=== PATIENT | female | born 1980 | race Asian ===

== ENCOUNTER 2019-01-25 21:55 | Emergency (ER) | payer MEDICAID ==
[~2019-01-25] VITALS: Ht 154.9 cm; Wt 55.0 kg
[2019-01-25] MEDS ORDERED: SODIUM CHLORIDE 0.9% 1,000 ML IV ONE (23:23)
[2019-01-26 00:35] LABS: BASOPHILS % 0.4 % (0.0-2.0); HEMATOCRIT. 38.7 % (36.0-48.0); HEMOGLOBIN. 13.4 g/dL (12.0-16.0); LYMPHOCYTES % 28.5 % (20.0-50.0); MEAN CORPUSCULAR HEMOGLOBIN 31.1 pg (28.0-32.0); MEAN CORPUSCULAR VOLUME 89.7 fL (81.0-99.0); MEAN PLATELET VOLUME 9.4 fl (7.4-10.4); MONOCYTES % 5.6 % (2.0-8.0); NEUTROPHILS % 64.5 % (40.0-76.0); PLATELET 281 x1000/uL (130-400); RED BLOOD CELL COUNT 4.31 mill/uL (4.2-5.4); RED CELL DISTRIBUTION WIDTH 12.5 % (11.6-14.6)
[2019-01-26 00:44] LABS: PROTHROMBIN TIME 10.2 sec (9.6-11.0)
[2019-01-26 00:57] LABS: CHLORIDE 105 mEq/L (98-107)
[2019-01-26 01:16] LABS: CLARITY URINE CLEAR (CLEAR); COLOR URINE YELLOW (YELLOW); KETONES URINE NEGATIVE (NEGATIVE); LEUKOCYTE ESTERASE URINE NEGATIVE (NEGATIVE); NITRITE URINE NEGATIVE (NEGATIVE); OCCULT BLOOD URINE TRACE (NEGATIVE); PH URINE 8.5 (4.5-8.0); PROTEIN URINE NEGATIVE (NEGATIVE); SPECIFIC GRAVITY URINE 1.019 (1.005-1.030); UROBILINOGEN URINE 0.2 E.U./dL (0.2-1.0)
[2019-01-26 01:24] LABS: B-HCG QUANTITATIVE 1235 mIU/mL (<3)
[2019-01-26] MEDS ORDERED: DEXT 5%/LR + PITOCIN 20UNITS/L 1,000 ML IV ONE (01:30)
[2019-01-26 01:37] LABS: *AMPHETAMINES SCREEN URINE NEGATIVE (NEGATIVE); *BARBITURATES SCREEN URINE NEGATIVE (NEGATIVE); *BENZODIAZEPINES SCREEN URINE NEGATIVE (NEGATIVE)
[2019-01-26 01:38] LABS: *COCAINE SCREEN URINE NEGATIVE (NEGATIVE); CANNABINOID URINE SCREEN NEGATIVE (NEGATIVE); METHADONE URINE SCREEN NEGATIVE (NEGATIVE); OPIATES URINE SCREEN NEGATIVE (NEGATIVE); PHENCYCLIDINE URINE SCREEN NEGATIVE (NEGATIVE)
[2019-01-26] MEDS ORDERED: OXYTOCIN 30 UNITS in DEXT 5%/LACTATED RINGERS 1,000 ML IV ONE (01:45)
[2019-01-26] MEDS ORDERED: KETOROLAC 30MG/ML VIAL IV ONE (02:00)
[2019-01-26] MEDS ORDERED: METHYLERGONOVINE MALEATE 0.2 MG/ML IM ONE (02:00)
[2019-01-26 02:59] VITALS: BP 111/63
== END 2019-01-26 02:40 | disposition home or self-care (01) ==
LOC: ER 22:09
DX: O03.4 Incomplete spontaneous abortion without complication (principal)
CPT/HCPCS: 36415; 76830; 76856; 80053; 80305; 81003; 81025; 84702; 85025; 85610; 86850; 86870; 86900; 86901; 96372; 96374; 99284; J1885; J2210; J7030; J7121; Z7610; J2590

== ENCOUNTER 2019-06-18 13:33 | Emergency (ER) | payer MEDICAID ==
[~2019-06-18] VITALS: Ht 154.9 cm; Wt 54.0 kg
[2019-06-18 17:25] LABS: CLARITY URINE CLOUDY (CLEAR); COLOR URINE YELLOW (YELLOW); KETONES URINE NEGATIVE (NEGATIVE); LEUKOCYTE ESTERASE URINE NEGATIVE (NEGATIVE); NITRITE URINE NEGATIVE (NEGATIVE); OCCULT BLOOD URINE 3+ (NEGATIVE); PH URINE 7.5 (4.5-8.0); PROTEIN URINE NEGATIVE (NEGATIVE); SPECIFIC GRAVITY URINE 1.013 (1.005-1.030); UROBILINOGEN URINE 0.2 E.U./dL (0.2-1.0)
[2019-06-18 18:22] LABS: BASOPHILS % 0.5 % (0.0-2.0); EOSINOPHILS % 0.7 % (0.0-5.0); HEMATOCRIT. 38.8 % (36.0-48.0); HEMOGLOBIN. 13.3 g/dL (12.0-16.0); LYMPHOCYTES % 21.7 % (20.0-50.0); MEAN CORPUSCULAR HEMOGLOBIN 30.4 pg (28.0-32.0); MEAN CORPUSCULAR VOLUME 89.1 fL (81.0-99.0); MEAN PLATELET VOLUME 8.9 fl (7.4-10.4); MONOCYTES % 4.6 % (2.0-8.0); NEUTROPHILS % 72.5 % (40.0-76.0); PLATELET 285 x1000/uL (130-400); RED BLOOD CELL COUNT 4.36 mill/uL (4.2-5.4)
[2019-06-18 18:27] LABS: CHLORIDE 109 mEq/L (98-107)
[2019-06-18 18:38] LABS: B-HCG QUANTITATIVE 797 mIU/mL (<3)
[2019-06-18 21:59] VITALS: BP 113/57
== END 2019-06-18 22:00 | disposition home or self-care (01) ==
LOC: ER 13:42
DX: O20.0 Threatened abortion (principal); Z3A.01 Less than 8 weeks gestation of pregnancy
CPT/HCPCS: 36415; 76801; 81003; 81025; 84702; 86850; 86900; 99284